=== PATIENT | male | born 1950 | race Caucasian/White ===

== ENCOUNTER 2022-12-19 04:12 | Emergency (ER) | payer MEDICARE, OTHER ==
[~2022-12-19] VITALS: Ht 177.8 cm; Wt 64.0 kg
[2022-12-19 04:14] VITALS: BP 141/76
[2022-12-19 09:30] LABS: BASOPHILS % 0.9 % (0.0-2.0); EOSINOPHILS % 1.8 % (0.0-5.0); HEMATOCRIT. 37.8 % (42.0-52.0); HEMOGLOBIN. 12.6 g/dL (14.0-18.0); MEAN CORPUSCULAR VOLUME 87.4 fL (80.0-94.0); MONOCYTES % 10.6 % (2.0-8.0); NEUTROPHILS % 65.7 % (40.0-76.0); PLATELET 405 x1000/uL (130-400); RED BLOOD CELL COUNT 4.32 mill/uL (4.7-6.1)
[2022-12-19 09:32] LABS: CHLORIDE 105 mEq/L (98-107)
== END 2022-12-19 11:16 | disposition left against medical advice (07) ==
LOC: ER 04:12
DX: Z53.21 Procedure and treatment not carried out due to patient leaving prior to being seen by health care provider (principal)
CPT/HCPCS: 36415; 80053; 85025; 99281

== ENCOUNTER 2022-12-19 15:23 | Emergency (ER) | payer MEDICARE, MEDICAID ==
[~2022-12-19] VITALS: Ht 167.6 cm; Wt 80.0 kg
[2022-12-19 15:49] VITALS: BP 138/79
== END 2022-12-19 16:50 | disposition left against medical advice (07) ==
LOC: ER 15:23
DX: Z53.21 Procedure and treatment not carried out due to patient leaving prior to being seen by health care provider (principal)
CPT/HCPCS: 99281